=== PATIENT | female | born 1940 | race Caucasian/White ===

== ENCOUNTER 2017-11-07 20:46 | Observation (INO) | payer BC, MEDICARE ==
[~2017-11-07] VITALS: Ht 152.4 cm; Wt 64.3 kg
[~2017-11-07 20:46] MED LIST: ALBU6.7H INH; BENZ100 PO; LEVO50TA51 PO; PRIL20CA PO; ZITH250T PO
[2017-11-07 20:51] VITALS: BP 168/74; PULSE 79; RESP 18; TEMP 98.2; O2SAT 99
--- NOTE | 2017-11-07 21:13 | PD ---
HPI Chief Complaint: Flank/Kidney Pain Time Seen by Provider: 21:01 Travel History International Travel<30 days: No Contact w/Intl Traveler<30days: No Traveled to known affect area: No History of Present Illness HPI This patient complains of left flank pain. Symptoms are moderately severe. Duration is 2 hours. It radiates down toward her left lower quadrant. No urinary complaints or injury or fever. Symptoms have no alleviating factors. No exacerbating factors. PFSH Past Medical History Diminished Hearing: Yes (SOME [place]LUAK BILAT) Thyroid Disease: Yes (HYPOTHYROID) Menopausal: Yes Tubal Ligation: Yes Past Surgical History Appendectomy: Yes Cholecystectomy: Yes Hysterectomy: Yes Tonsillectomy: Yes Other Surgery: Yes (LUMPECTOMY LT BREAST- BENIGN.) Social History Alcohol Use: No Tobacco Use: No Substance Use: No Allergies-Medications (Allergen,Severity, Reaction): Coded Allergies: cefepime (Unverified Allergy, Mild, 01/13/17) ceftaroline fosamil (Unverified Allergy, Mild, 01/13/17) Reported Meds & Prescriptions Reported Meds & Active Scripts Active Reported Synthroid (Levothyroxine Sodium) 75 Mcg Tab 75 Mcg PO DAILY Prilosec (Omeprazole Magnesium) 20 Mg Tab Review of Systems General / Constitutional: No: Fever Eyes: No: Visual changes HENT: No: Headaches Cardiovascular: No: Chest Pain or Discomfort Respiratory: No: Shortness of Breath Gastrointestinal: No: Abdominal Pain Genitourinary: Positive: Flank Pain, No: Dysuria Musculoskeletal: No: Pain Skin: No Rash Neurologic: No: Weakness Psychiatric: No: Depression Endocrine: No: Polydipsia Hematologic/Lymphatic: No: Easy Bruising Physical Exam Narrative GENERAL: Well-nourished, well-developed patient with left flank pain . SKIN: Focused skin assessment reveals no rash and nodules. Skin is Warm and dry. HEAD: Atraumatic. Normocephalic. EYES: Pupils equal and round. No scleral icterus. No injection or drainage. ENT: No nasal bleeding or discharge. Mucous membranes pink and moist. NECK: Trachea midline. No JVD. CARDIOVASCULAR: Regular rate and rhythm. No murmur appreciated. RESPIRATORY: No accessory muscle use. Clear to auscultation. Breath sounds equal bilaterally. GASTROINTESTINAL: Abdomen soft, non-tender, nondistended. Hepatic and splenic margins not palpable. MUSCULOSKELETAL: No obvious deformities. No clubbing. No cyanosis. No edema. NEUROLOGICAL: Awake and alert. No obvious cranial nerve deficits. Motor grossly within normal limits. Normal speech. PSYCHIATRIC: Appropriate mood and affect; insight and judgment normal. Data Data Last Documented VS Vital Signs Date Time Temp Pulse Resp B/P (MAP) Pulse Ox O2 Delivery O2 Flow Rate FiO2 11/07/17 20:51 98.2 79 18 168/74 (105) 99 Orders Orders Complete Blood Count With Diff (11/07/17 21:11) Basic Metabolic Panel (Bmp) (11/07/17 21:11) Urinalysis - C+S If Indicated (11/07/17 21:11) Ct Abd/Pel W/O Iv Contrast (11/07/17 21:11) Iv Access Insert/Monitor (11/07/17 21:11) Morphine Inj (Morphine Inj) (11/07/17 21:15) Sodium Chloride 0.9% Flush (Ns Flush) (11/07/17 21:15) Ondansetron Odt (Zofran Odt) (11/07/17 21:15) Hydromorphone Pf Inj (Dilaudid Pf Inj) (11/07/17 22:45) Prochlorperazine Inj (Compazine Inj) (11/07/17 22:45) Admit Order (Ed Use Only) (11/07/17 22:38) Labs Laboratory Tests Test 11/07/17 21:15 White Blood Count 5.5 TH/MM3 Red Blood Count 4.46 MIL/MM3 Hemoglobin 13.6 GM/DL Hematocrit 39.5 % Mean Corpuscular Volume 88.6 FL Mean Corpuscular Hemoglobin 30.4 PG Mean Corpuscular Hemoglobin Concent 34.3 % Red Cell Distribution Width 13.6 % Platelet Count 230 TH/MM3 Mean Platelet Volume 8.8 FL Neutrophils (%) (Auto) 50.5 % Lymphocytes (%) (Auto) 35.1 % Monocytes (%) (Auto) 11.5 % Eosinophils (%) (Auto) 2.5 % Basophils (%) (Auto) 0.4 % Neutrophils # (Auto) 2.9 TH/MM3 Lymphocytes # (Auto) 1.9 TH/MM3 Monocytes # (Auto) 0.6 TH/MM3 Eosinophils # (Auto) 0.1 TH/MM3 Basophils # (Auto) 0.0 TH/MM3 CBC Comment DIFF FINAL Differential Comment Urine Color YELLOW Urine Turbidity CLEAR Urine pH 6.0 Urine Specific [place] LESS/EQUAL 1.005 Urine Protein NEG mg/dL Urine Glucose (UA) NEG mg/dL Urine Ketones NEG mg/dL Urine Occult Blood TRACE Urine Nitrite NEG Urine Bilirubin NEG Urine Urobilinogen 0.2 MG/DL Urine Leukocyte Esterase TRACE Urine WBC 0-2 /hpf Urine Squamous Epithelial Cells 0-5 /hpf Microscopic Urinalysis Comment CULT NOT INDICATED Blood Urea Nitrogen 29 MG/DL Creatinine 1.50 MG/DL Random Glucose 120 MG/DL Calcium Level 8.7 MG/DL Sodium Level 136 MEQ/L Potassium Level 3.7 MEQ/L Chloride Level 104 MEQ/L Carbon Dioxide Level 22.8 MEQ/L Anion Gap 9 MEQ/L Estimat Glomerular Filtration Rate 34 ML/MIN [facility] Medical Decision Making Medical Screen Exam Complete: Yes Emergency Medical Condition: Yes Medical Record Reviewed: Yes Differential Diagnosis Kidney stone, sciatica, lumbar strain Narrative Course I have reviewed the patient's electronic medical record. IV placed and labs sent Urinalysis is clean CT of abdomen and pelvis shows some inflammation at the lower pole of the left kidney. She has polycystic kidneys on CT and this could represent cyst rupture. No stone on CT I gave her injection of morphine and a dose of Zofran for symptom relief patient immediately developed epigastric discomfort and nausea after the morphine. I believe this was iatrogenically caused. It is gradually resolving on its own. CBC is normal. Metabolic studies revealed mild renal insufficiency. Patient still having a lot of pain. I gave her a dose of Dilaudid and Compazine. Patient will be a 23 hour observation in the hospital for symptom control of intractable left flank pain. Call is placed hospitalist to discuss. Diagnosis Primary Impression: Acute left flank pain Admitting Information Admitting Physician Requests: Observation Gordo Craig MD Nov 07, 2017 21:13
[2017-11-07] MEDS ORDERED: ONDANSETRON ODT 4 MG TAB PO ONE (21:15)
[2017-11-07] MEDS ORDERED: MORPHINE SULFATE 4 MG/ML INJ IV PUSH ONE (21:15)
[2017-11-07] MEDS ORDERED: SODIUM CHLORIDE 0.9% FLUSH 10 ML FLUSH IVF PRN (21:15)
[2017-11-07 21:31] LABS: BILIRUBIN, URINE NEG (NEG); BLOOD, URINE TRACE (NEG); GLUCOSE,URINE NEG (NEG); KETONE, URINE NEG (NEG); NITRITE,URINE NEG (NEG); URINE COLOR YELLOW (YELLW/STRAW); URINE LEUKOCYTE ESTERASE TRACE (NEG)
[2017-11-07 21:33] LABS: AUTOMATED NEUTROPHIL # 2.9 TH/MM3 (1.8-7.7); BASOPHIL % 0.4 % (0.0-2.0); EOSINOPHIL # 0.1 TH/MM3 (0-0.4); EOSINOPHIL % 2.5 % (0.0-4.0); HEMATOCRIT 39.5 % (35.0-46.0); HEMOGLOBIN 13.6 GM/DL (11.6-15.3); LYMPH % 35.1 % (9.0-44.0); LYMPHOCYTE # 1.9 TH/MM3 (1.0-4.8); MEAN CELL VOLUME 88.6 FL (80.0-100.0); MEAN CORPUSCULAR HEMOGLOBIN 30.4 PG (27.0-34.0); MEAN CORPUSCULAR HGB CONC 34.3 % (32.0-36.0); MEAN PLATELET VOLUME 8.8 FL (7.0-11.0); MONO % 11.5 % (0.0-8.0); MONOCYTE # 0.6 TH/MM3 (0-0.9); NEUT % 50.5 % (16.0-70.0); PLATELET COUNT 230 TH/MM3 (150-450); RED BLOOD COUNT 4.46 MIL/MM3 (4.00-5.30); RED CELL DISTRIBUTION WIDTH 13.6 % (11.6-17.2); WHITE BLOOD COUNT 5.5 TH/MM3 (4.0-11.0)
[2017-11-07 21:42] LABS: CALCIUM 8.7 MG/DL (8.5-10.1)
[2017-11-07 21:43] LABS: BICARBONATE 22.8 MEQ/L (21.0-32.0)
[2017-11-07 21:46] LABS: CREATININE 1.5 MG/DL (0.50-1.00)
[2017-11-07 21:48] LABS: SQUAMOUS EPITHELIAL CELL URINE 0-5 /hpf (0-5); WBC, URINE 0-2 /hpf (0-5)
[2017-11-07] MEDS ORDERED: LEVO.075 PO (21:54)
[2017-11-07] MEDS ORDERED: PRIL20TA2 (21:54)
--- NOTE | 2017-11-07 22:00 | RADRPT ---
EXAM DATE: 11/07/2017 9:41 PM EDT AGE/SEX: 77 years / Female INDICATIONS: Left flank pain. CLINICAL DATA: This is the patient's initial encounter. Patient reports that signs and symptoms have been present for 1 day and indicates a pain score of 10/10. MEDICAL/SURGICAL HISTORY: Hypothyroidism. Renal disease, end stage. Appendectomy. Cholecystec iris. Tubal ligation. Hysterectomy. RADIATION DOSE: 6.44 CTDI (mGy) COMPARISON: No prior exams available for comparison. TECHNIQUE: Multiple contiguous axial images were obtained through the abdomen. Images were obtained using multiple row detector helical technique. Using dose reduction techniques, radiation dose was ke pt as low as reasonably achievable to obtain optimal diagnostic quality images. FINDINGS: No prior study for comparison. There are polycystic kidneys bilaterally. Around the inferior left kid sebastian there is abnormal fluid and stranding in the perinephric soft tissues. The finding is nonspecific . This could be related to rupture of a renal cyst or possibly inflammatory change or edematous thornton e related to a recent obstructive uropathy. No left-sided renal calculi are identified. There are mony e rim calcifications around cysts in the right kidney. No significant ureteral dilatation. Bladder is unremarkable. Lung bases demonstrate some mild fibrotic changes. No acute findings in the liver, spleen, adrenals o r pancreas. Previous cholecystectomy. There is mild constipation. Mild thoracic levoscoliosis. There is colonic diverticulosis without evidence for diverticulitis. Probable laminectomy defect in the low er lumbar spine with some dilatation of the thecal sac and possibly a left-sided perineural cyst. CONCLUSION: 1. Abnormal stranding of fat around lower pole left kidney. Findings are nonspecific. Differential d iagnosis includes ruptured renal cyst, inflammatory change or edematous change from recent obstructiv e uropathy. Polycystic kidneys present. No definite hydronephrosis. 2. Moderate constipation with diverticular disease. Electronically signed by: Javid Gore MD 11/07/2017 9:58 PM EDT
[2017-11-07] MEDS ORDERED: HYDROmorphone HCL PF 1 MG/ML VIAL IVS ONE (22:45)
[2017-11-07] MEDS ORDERED: PROCHLORPERAZINE INJ 10 MG/2 ML VIAL IV PUSH ONE (22:45)
[2017-11-07 22:50] VITALS: BP 110/56; PULSE 63; RESP 16; O2SAT 99
[2017-11-07] MEDS ORDERED: LACTULOSE SYRUP 20 GM/30 ML CUP PO PRN (23:00)
[2017-11-07] MEDS ORDERED: SODIUM CHLORIDE 0.9% FLUSH 10 ML FLUSH IV FLUSH PRN (23:00)
[2017-11-07] MEDS ORDERED: MORPHINE SULFATE 2 MG/ML SYRINGE IV PUSH PRN (23:00)
[2017-11-07] MEDS ORDERED: SENNOSIDES 8.6 MG TAB PO PRN (23:00)
[2017-11-07] MEDS ORDERED: BISACODYL 10 MG SUPP RECTAL PRN (23:00)
[2017-11-07] MEDS ORDERED: ACETAMINOPHEN 325 MG TAB PO PRN (23:00)
[2017-11-07] MEDS ORDERED: ACETAMINOPHEN/HYDROcodone 325 MG/5 MG TAB PO PRN (23:00)
[2017-11-07] MEDS ORDERED: HYDROmorphone HCL PF 0.5 MG/0.5 ML SYRINGE IV PUSH ONE (23:00)
[2017-11-07] MEDS ORDERED: METOCLOPRAMIDE HCL 10 MG/2 ML VIAL IV PUSH PRN (23:00)
[2017-11-07] MEDS ORDERED: MAGNESIUM HYDROXIDE SUSP 30 ML CUP PO PRN (23:00)
[2017-11-07] MEDS: SODIUM CHLOR 0.9% 1000 ML INJ 1,000 ML IV SCH (23:01)
[2017-11-08] VITALS: BP 114/56; PULSE 69; RESP 20; TEMP 97.8; O2SAT 95
[2017-11-08] MEDS: HYDROmorphone HCL PF 0.5 MG/0.5 ML SYRINGE IV PUSH PRN ×2 (02:48→07:47)
[2017-11-08] MEDS: SODIUM CHLOR 0.9% 1000 ML INJ 1,000 ML IV SCH (03:30)
[2017-11-08 06:46] LABS: AUTOMATED NEUTROPHIL # 3.8 TH/MM3 (1.8-7.7); BASOPHIL # 0.1 TH/MM3 (0-0.2); EOSINOPHIL % 0.4 % (0.0-4.0); HEMATOCRIT 35.8 % (35.0-46.0); HEMOGLOBIN 12.4 GM/DL (11.6-15.3); LYMPH % 15.9 % (9.0-44.0); LYMPHOCYTE # 0.8 TH/MM3 (1.0-4.8); MEAN CELL VOLUME 89.1 FL (80.0-100.0); MEAN CORPUSCULAR HEMOGLOBIN 30.7 PG (27.0-34.0); MEAN CORPUSCULAR HGB CONC 34.5 % (32.0-36.0); MEAN PLATELET VOLUME 8.7 FL (7.0-11.0); MONO % 9.1 % (0.0-8.0); MONOCYTE # 0.5 TH/MM3 (0-0.9); NEUT % 73.6 % (16.0-70.0); PLATELET COUNT 197 TH/MM3 (150-450); RED BLOOD COUNT 4.02 MIL/MM3 (4.00-5.30); RED CELL DISTRIBUTION WIDTH 13.6 % (11.6-17.2); WHITE BLOOD COUNT 5.2 TH/MM3 (4.0-11.0)
[2017-11-08 07:51] LABS: BLOOD UREA NITROGEN 31 MG/DL (7-18); GLOMERULAR FILTRATION RATE 31 ML/MIN (>89); GLUCOSE,RANDOM 124 MG/DL (74-106); TOTAL PROTEIN 6.4 GM/DL (6.4-8.2)
[2017-11-08 07:52] LABS: ALBUMIN 3.2 GM/DL (3.4-5.0); ALKALINE PHOSPHATASE 118 U/L (45-117); ALT (GPT) 23 U/L (10-53); AST (GOT) 27 U/L (15-37); BICARBONATE 26.3 MEQ/L (21.0-32.0); CALCIUM 8.5 MG/DL (8.5-10.1); CHLORIDE 106 MEQ/L (98-107); SODIUM (NA) 140 MEQ/L (136-145); TOTAL BILIRUBIN ADULT 0.4 MG/DL (0.2-1.0)
[2017-11-08 07:59] VITALS: BP 127/66; PULSE 69; RESP 18; TEMP 96.6; O2SAT 97
[2017-11-08] MEDS ORDERED: ACETAMINOPHEN/HYDROcodone 325 MG/10 MG TAB PO PRN (08:45)
[2017-11-08] MEDS ORDERED: SODIUM CHLORIDE 0.9% FLUSH 10 ML FLUSH IV FLUSH SCH (09:00)
[2017-11-08] MEDS ORDERED: DOCUSATE SODIUM 50 MG/SENNA 8.6 MG TAB PO SCH (09:00)
[2017-11-08] MEDS ORDERED: LEVOTHYROXINE SODIUM 75 MCG TAB PO SCH (09:45)
[2017-11-08 12:02] VITALS: BP 125/58; PULSE 61; RESP 18; TEMP 98.6; O2SAT 97
--- NOTE | 2017-11-08 12:48 | HHI.DCPOC ---
Discharge Care Plan Diagnosis: (1) Acute left flank pain Goals to Promote Your Health * To prevent worsening of your condition and complications * To maintain your health at the optimal level Directions to Meet Your Goals Take your medications as prescribed Follow your dietary instruction Follow activity as directed Keep your appointments as scheduled Take your immunizations and boosters as scheduled If your symptoms worsen call your PCP, if no PCP go to Urgent Care Center or Emergency Room Smoking is Dangerous to Your Health. Avoid second hand smoke Call the 24-hour hour crisis hotline for domestic abuse at Gordo Bess Nov 08, 2017 12:48
--- NOTE | 2017-11-08 12:58 | HHI.HP ---
[facility] Alicia Humphrey MD Admission Diagnosis intract L flank pain, poss cyst rupture Diagnoses: (1) Acute left flank pain Diagnosis: Principal Chief Complaint: Left flank pain Travel History International Travel<30 Days: No Contact w/Intl Traveler <30 Da: No Traveled to Known Affected Are: No History of Present Illness Written by Gordo Bess, acting as scribe for Dr. Mendoza on 11/08/17 at 12: 49. 77-year-old female with known history of chronic kidney disease stage III, renal cyst, hypothyroidism, gastroesophageal reflux who is in normal state of health and [place] when she got a sudden onset of left-sided flank pain. She states that it came on very suddenly and pain was not improved with any type of movement, position, worse whenever she walks. She states that she try to lay down but the pain did not improve. She described as a constant pain that was not intermittent or waxing or waning. She compares the pain that was worse in any childbirth and she has 6 children. She came to the emergency department for evaluation and she was given morphine in the emergency department and she developed indigestion with abdominal discomfort. Patient was given Compazine with improvement. Patient states that she continued to have significant flank pain throughout the evening. This morning she was given Dilaudid for pain control with complete resolution of her pain and she has not required any pain medication since then. Patient does have history of multiple cyst on her kidneys. She just had an ultrasound done in August of this year. Her medical doctor's Dr. Humphrey. Urologist is Dr. Chen. Patient did have workup done emergency department with continued evidence of chronic kidney disease stage III. CT scan did show abnormal stranding in the fat around the pole of the left kidney. Differential diagnosis included ruptured renal cyst, inflammatory change or edematous change from recent obstructive uropathy. Polycystic kidneys were present w no hydronephrosis. Review of Systems Gastrointestinal: COMPLAINS OF: Abdominal pain Except as stated in HPI: all other systems reviewed are Neg Past Family Social History Past Medical History Chronic kidney disease stage III Polycystic kidney disease Hypothyroidism Gastroesophageal reflux Past Surgical History Bunion surgery of the left foot Appendectomy Cholecystectomy Hysterectomy Tonsillectomy Left breast lump removal Tubal ligation Reported Medications Reported Meds & Active Scripts Active Reported Synthroid (Levothyroxine Sodium) 75 Mcg Tab 75 Mcg PO DAILY Prilosec (Omeprazole Magnesium) 20 Mg Tab Allergies: Coded Allergies: cefepime (Unverified Allergy, Mild, 01/13/17) ceftaroline fosamil (Unverified Allergy, Mild, 01/13/17) Family History Reviewed and significant for mother at age 93, father at age 88 both of them of which patient states were in good health. Social History Patient quit smoking at age 42, prior to that she smoked 1 pack of cigarettes a day for 20 years. She states that she quit using alcohol in 1975. Denies any illicit drug Physical Exam Vital Signs Vital Signs Date Time Temp Pulse Resp B/P (MAP) Pulse Ox O2 Delivery O2 Flow Rate FiO2 11/08/17 12:02 98.6 61 18 125/58 (80) 97 11/08/17 09:13 18 11/08/17 07:59 96.6 69 18 127/66 (86) 97 11/08/17 00:35 11/08/17 00:00 97.8 69 20 114/56 (75) 95 11/07/17 22:50 63 16 110/56 (74) 99 Room Air 11/07/17 20:51 98.2 79 18 168/74 (105) 99 Physical Exam GENERAL: Well-developed, well-nourished, in no acute distress. alert and orientated HEENT: Extraocular muscles are intact. Conjunctivae were clear. Buccal mucosa is moist NECK: Supple without any masses. Trachea midline no deviation. No JVD, no bruits are appreciated CARDIAC: Regular rhythm, regular rate. No murmurs LUNGS: Clear to auscultation bilaterally. No wheeze. No use of accessory muscles on inspiration or expiration. ABDOMEN: Soft, nontender. Nondistended. Bowel sounds heard in all 4 quadrants. Negative rebound, negative guarding EXTREMITIES: No edema, pulses are equal bilaterally. NEUROLOGY: Mood and affect appear appropriate. Cranial nerves II through XII grossly intact. Muscle strength 5/5 in upper and lower extremities bilaterally. Laboratory Laboratory Tests Test 11/07/17 21:15 11/08/17 06:10 White Blood Count 5.5 5.2 Red Blood Count 4.46 4.02 Hemoglobin 13.6 12.4 Hematocrit 39.5 35.8 Mean Corpuscular Volume 88.6 89.1 Mean Corpuscular Hemoglobin 30.4 30.7 Mean Corpuscular Hemoglobin Concent 34.3 34.5 Red Cell Distribution Width 13.6 13.6 Platelet Count 230 197 Mean Platelet Volume 8.8 8.7 Neutrophils (%) (Auto) 50.5 73.6 Lymphocytes (%) (Auto) 35.1 15.9 Monocytes (%) (Auto) 11.5 9.1 Eosinophils (%) (Auto) 2.5 0.4 Basophils (%) (Auto) 0.4 1.0 Neutrophils # (Auto) 2.9 3.8 Lymphocytes # (Auto) 1.9 0.8 Monocytes # (Auto) 0.6 0.5 Eosinophils # (Auto) 0.1 0.0 Basophils # (Auto) 0.0 0.1 CBC Comment DIFF FINAL DIFF FINAL Differential Comment Urine Color YELLOW Urine Turbidity CLEAR Urine pH 6.0 Urine Specific [place] LESS/EQUAL 1.005 Urine Protein NEG Urine Glucose (UA) NEG Urine Ketones NEG Urine Occult Blood TRACE Urine Nitrite NEG Urine Bilirubin NEG Urine Urobilinogen 0.2 Urine Leukocyte Esterase TRACE Urine WBC 0-2 Urine Squamous Epithelial Cells 0-5 Microscopic Urinalysis Comment CULT NOT INDICATED Blood Urea Nitrogen 29 31 Creatinine 1.50 1.60 Random Glucose 120 124 Calcium Level 8.7 8.5 Sodium Level 136 140 Potassium Level 3.7 4.4 Chloride Level 104 106 Carbon Dioxide Level 22.8 26.3 Anion Gap 9 8 Estimat Glomerular Filtration Rate 34 31 Total Protein 6.4 Albumin 3.2 Alkaline Phosphatase 118 Aspartate Amino Transf (AST/SGOT) 27 Alanine Aminotransferase (ALT/SGPT) 23 Total Bilirubin 0.4 Result Diagram: 11/08/1710 11/08/17 0610 Imaging Last Impressions Abdomen/Pelvis CT 11/07/172110 Signed Impressions: CONCLUSION: 1. Abnormal stranding of fat around lower pole left kidney. Findings are nonsp ecific. Differential diagnosis includes ruptured renal cyst, inflammatory thornton e or edematous change from recent obstructive uropathy. Polycystic kidneys pres ent. No definite hydronephrosis. 2. Moderate constipation with diverticular disease. Caprini VTE Risk Assessment Caprini VTE Risk Assessment: Mod/High Risk (score >= 2) Caprini Risk Assessment Model Point Value = 1 Point Value = 2 Point Value = 3 Point Value = 5 Age 41-60 Minor surgery BMI > 25 kg/m2 Swollen legs Varicose veins or History of unexplained or recurrent spontaneous Oral contraceptives or hormone replacement Sepsis (< 1 month) Serious lung disease, including pneumonia (< 1 month) Abnormal pulmonary function Acute myocardial infarction Congestive heart failure (< 1 month) History of inflammatory bowel disease Medical patient at bed rest Age 61-74 Arthroscopic surgery Major open surgery (> 45 min) Laparoscopic surgery (> 45 min) Malignancy Confined to bed (> 72 hours) Immobilizing plaster cast Central venous access Age >= 75 History of VTE Family history of VTE Factor V Leiden Prothrombin [id number] Lupus anticoagulant Anticardiolipin antibodies Elevated serum homocysteine Heparin-induced thrombocytopenia Other congenital or acquired thrombophilia Stroke (< 1 month) Elective arthroplasty Hip, pelvis, or leg fracture Acute spinal cord injury (< 1 month) Prophylaxis Regimen Total Risk Factor Score Risk Level Prophylaxis Regimen 0-1 Low Early ambulation 2 Moderate Order ONE of the following: *Sequential Compression Device (SCD) *Heparin 5000 units SQ BID 3-4 Higher Order ONE of the following medications: *Heparin 5000 units SQ TID *Enoxaparin/Lovenox 40 mg SQ daily (WT < 150 kg, CrCl > 30 mL/min) *Enoxaparin/Lovenox 30 mg SQ daily (WT < 150 kg, CrCl > 10-29 mL/min) *Enoxaparin/Lovenox 30 mg SQ BID (WT < 150 kg, CrCl > 30 mL/min) AND/OR *Sequential Compression Device (SCD) 5 or more Highest Order ONE of the following medications: *Heparin 5000 units SQ TID (Preferred with Epidurals) *Enoxaparin/Lovenox 40 mg SQ daily (WT < 150 kg, CrCl > 30 mL/min) *Enoxaparin/Lovenox 30 mg SQ daily (WT < 150 kg, CrCl > 10-29 mL/min) *Enoxaparin/Lovenox 30 mg SQ BID (WT < 150 kg, CrCl > 30 mL/min) AND *Sequential Compression Device (SCD) Assessment and Plan Assessment and Plan Acute onset of left flank pain -Patient does have extensive history of cysts in her kidneys but was told by her urologist that she doesn't have polycystic kidney disease. She was informed to f/u w urology in outpatient setting -CT scan does show stranding of the fat surrounding the pole of the left kidney which differential diagnosis could also be rupture of a kidney cyst -Patient was admitted with IV fluids, pain control -Patient currently asymptomatic. Patient states that the pain has completely resolved Chronic kidney disease stage III -Upon review of medical records it appears this patient has had a mild worsening of chronic kidney disease stage III with GFR from 39 down to 31 in the last 4 years. -Patient continue outpatient follow-up with her primary medical doctor and urologist Hypothyroidism -Home medications have been continued DVT prevention -Sequential compression devices This note was transcribed by sandra Bess. I, Dr. Asha Mendoza personally performed the history, physical exam, and medical decision making; and confirmed the accuracy of the information in the transcribed note. Authenticated by Dr. Asha Mendoza on 11/08/17 at 12:49. Discharge disposition Discharge home in stable condition Activity: Ad anisha. Diet: Regular diet Medication per medication reconciliation Follow-up with primary medical doctor early next week Code Status Full code Gordo Bess Nov 08, 2017 12:57 Asah Mendoza MD Nov 08, 2017 13:02
[2017-11-08] MEDS ORDERED: HYDR-3516 PO (13:03)
== END 2017-11-08 14:07 | disposition home or self-care (01) ==
LOC: PHED 20:46 → PHEDA 22:40 → PH3B 11-08 00:21
PROVIDERS: ADMIT Hospitalist; ATTEND Hospitalist
DX: R10.13 Epigastric pain (principal); R11.0 Nausea; N18.3 Chronic kidney disease, stage 3 (moderate); E03.9 Hypothyroidism, unspecified; K21.9 Gastro-esophageal reflux disease without esophagitis; Q61.3 Polycystic kidney, unspecified; H91.90 Unspecified hearing loss, unspecified ear; Z87.891 Personal history of nicotine dependence; Z79.899 Other long term (current) drug therapy
CPT/HCPCS: 74176; 80048; 80053; 81001; 85025; 96361; 96374; 96375; 96376; 99285; G0378; J0780; J1170; J2270; J2765; J7030